=== PATIENT | female | born 1945 | race Caucasian/White ===

== ENCOUNTER 2016-10-10 08:45 | Emergency (ER) | payer MEDICARE, BC ==
--- NOTE | ~2016-10-10 | CR63 ---
[facility] A Service of [facility] & [facility] RADIOLOGY TEXT RESULTS PATIENT: JAMES BOYCE LOCATION: SED : 43 UNIT #: [id number] AGE: [address]: Hugo Campos MD SEX: F ORDER DR: [id number] [address] [address] [id number] E MR#: [id number] Acc #: [id number] NAME: JAMES BOYCE. : 1945 SEX: F STUDY DATE/TIME: 10/10/2016 8:57 UNIT: SED ROOM: STUDY DESCRIPTION: CR Chest 2 View Attending Physician: Hugo Campos M.D. Ordering Physician: Hugo Campos M.D. Primary Care Physician: Ezra Li D.O. MEDICAL IMAGING REPORT This report is preliminary unless electronic signature is present. EXAM PA and lateral chest radiograph. INDICATIONS Cough that started evening. FINDINGS Heart size is within normal limits. There is a suggestion of a nodular density within the left upper lobe which I am not completely convinced was on the prior study. Patient does have background changes of COPD. There is a lucency seen on the lateral view which could reflect a pneumatocele. There is also potentially some patchy consolidation within the infrahilar regions. IMPRESSION 1. Suggestion of a nodular density within the left upper lobe which was not clearly identified on prior studies. This may reflect a benign finding or could even be artifactual. This would be better assessed with dedicated CT of the chest, especially given background changes of COPD. 2. Lucency seen on the lateral view could reflect a pneumatocele. I also question if perhaps there is some patchy consolidation within the infrahilar regions bilaterally. Dictated by... Veronica Argueta M.D. THIS IS AN ELECTRONICALLY VERIFIED REPORT Veronica Argueta M.D. at 10/11/2016 4:35 PM AFF/psc [facility] A Service of [facility] RADIOLOGY TEXT RESULTS PATIENT: JAMES BOYCE [place] [facility] [place] UNIT #: [id number] AGE: [address]: Hugo Campos MD SEX: F ORDER DR: TD: 10/10/2016 17:43 JOB #: [id number] MEDICAL IMAGING REPORT Page 1 of 1
[~2016-10-10 08:45] MED LIST: ALBUTEROL17 GM; AMLODIPINE BESYL5 MG PO; AMOXICILLIN PO; BYSTOLIC5 MG PO; ECOTRIN81 M1 PO; FLEXERIL PO; KETOPROFEN PO; LOPRESSOR PO; MEDROL PO; NORVASC10 MG PO; OMEPRAZOLE40 MG PO; PRAVACHOL80 MG PO; PRILOSEC40 MG PO; QVAR7.3 G1 IH; QVAR7.3 G1 IN; RANITIDINE HCL300 M1 PO; SYMBICORT; SYNTHROID PO; TYLENOL325 M1 PO; VITAMIN B122500 MC1 SL; VOLTAREN75 MG PO; ZITHROMAX1 G/PKT PO
== END 2016-10-10 09:33 | disposition home or self-care (01) ==
LOC: SED 08:45
DX: J18.1 Lobar pneumonia, unspecified organism (principal); J45.909 Unspecified asthma, uncomplicated; I10 Essential (primary) hypertension; Z98.51 Tubal ligation status
CPT/HCPCS: 71020; 99283

== ENCOUNTER → 2016-10-21 | Outpatient (CLI) | payer MEDICARE, BC ==
[~2016-10-21] MED LIST changes: +ASPIRIN81 MG PO
--- NOTE | ~2016-10-21 | CT57 ---
[facility] A Service of [facility] & [facility] RADIOLOGY TEXT RESULTS PATIENT: JAMES BOYCE LOCATION: [facility] : 43 UNIT #: [id number] AGE: [address]: Samara Crawford APRN SEX: F ORDER DR: [id number] [address] [address] [id number] O MR#: [id number] Acc #: [id number] NAME: JAMES BOYCE : 1945 SEX: F STUDY DATE/TIME: 10/21/2016 13:36 UNIT: [facility] ROOM: STUDY DESCRIPTION: CT Chest Wo Cont Attending Physician: Samara Crawford A.P.R.N. Referring Physician: Samara Crawford A.P.R.N. Ordering Physician: Samara Crawford A.P.R.N. Primary Care Physician: Ezra Li D.O. MEDICAL IMAGING REPORT This report is preliminary unless electronic signature is present. EXAM Chest CT no contrast 10/21/2016 INDICATION 71-year-old female with pneumonia bilaterally 2 weeks ago. Cough. "Bubble on outside of lungs" according to the patient. Abnormal ER x-ray performed 2 weeks ago. TECHNIQUE Noncontrast chest CT was performed. This CT examination was performed with one or more of the following radiation dose reduction techniques: automatic exposure control, adjustment of mA and/or kV according to patient size, and iterative reconstruction. COMPARISON 10/07/2009. FINDINGS There is no consolidation or pleural effusion. There are noncalcified nodules that are unchanged. This includes a 7 mm nodule in the upper lobe on the left and a 5 mm nodule in the lower lobe on the left. There are scattered areas of atelectasis/scarring. Included thyroid unremarkable. There are reactive-appearing axillary nodes. No pericardial effusion or mediastinal adenopathy. Aorta demonstrates atherosclerotic change to a mild degree. No aneurysm. Large hiatal hernia and partial intrathoracic stomach. Included upper abdomen unremarkable. Incidental uncomplicated diverticulosis. Osseous structures demonstrate degenerative change. No suspicious bone lesion. IMPRESSION [facility] A Service of [facility] & [facility] RADIOLOGY TEXT RESULTS PATIENT: JAMES BOYCE LOCATION: [facility] : 43 UNIT #: [id number] AGE: [address]: Samara Crawford APRN SEX: F ORDER DR: 1. No evidence of pneumonia, pleural effusion or adenopathy. 2. Noncalcified nodules in the left lung are unchanged dating back to 2009 and therefore benign. 3. Large hiatal hernia and partial intrathoracic stomach. Dictated by... Marquis Dumont M.D. THIS IS AN ELECTRONICALLY VERIFIED REPORT Marquis Dumont M.D. at 10/22/2016 4:49 PM MOHIT/tracey TD: 10/22/2016 10:22 JOB #: [id number] MEDICAL IMAGING REPORT Page 1 of 1
== END | disposition home or self-care (01) ==
LOC: SCT 13:33
DX: J18.9 Pneumonia, unspecified organism (principal); R91.8 Other nonspecific abnormal finding of lung field; K44.9 Diaphragmatic hernia without obstruction or gangrene
CPT/HCPCS: 71250

== ENCOUNTER 2017-03-14 15:22 | Emergency (ER) | payer MEDICARE, BC ==
--- NOTE | ~2017-03-14 | CT4 ---
[facility] A Service of [facility] & [facility] RADIOLOGY TEXT RESULTS PATIENT: JAMES BOYCE LOCATION: SED : 41 UNIT #: [id number] AGE: [address]: Jennifer Ruiz MD SEX: F ORDER DR: [id number] [address] [address] [id number] E MR#: [id number] Acc #: [id number] NAME: JAMES BOYCE. : 1945 SEX: F STUDY DATE/TIME: 03/14/2017 16:52 UNIT: SED ROOM: STUDY DESCRIPTION: CT Abd and Pelv Wo Cont Attending Physician: Jennifer Ruiz M.D. Ordering Physician: Jennifer Ruiz M.D. Primary Care Physician: Ezra Li D.O. MEDICAL IMAGING REPORT This report is preliminary unless electronic signature is present. EXAM Abdomen and pelvis CT, no contrast, 03/14/2017. INDICATIONS Generalized abdominal pain and nausea and diarrhea since last night. TECHNIQUE Noncontrast abdomen and pelvis CT was performed and compared with 01/05/2008. This CT exam was performed with one or more of the following radiation dose reduction techniques: automatic exposure control, adjustment of mA and/or kV according to patient size, and iterative reconstruction. FINDINGS CT ABDOMEN: Exam markedly degraded by noncontrast technique. Included lung bases are clear. There is a large hiatal hernia and partial intrathoracic stomach. Aorta demonstrates no aneurysm. Spleen, adrenal glands, and pancreas and gallbladder unremarkable. Liver unremarkable. Kidneys demonstrate no hydronephrosis or radiopaque stone. The ureters demonstrate no secondary sign of obstruction. There are several vascular-type calcifications in close proximity to the ureters and it would be impossible to fully exclude a distal ureteral stone on either side. Correlate with urinalysis. CT PELVIS: Bladder unremarkable. No free fluid or drainable fluid collection in the pelvis. No adnexal mass. There is diverticulosis. There is fluid distension of the colon suggestive of diarrhea. Appendix best demonstrated on coronal reformatted images and appears normal. Inguinal canals are unremarkable. No free air. There is antegrade listhesis of L4 on L5 that appears to be STS. [facility] A Service of [facility] RADIOLOGY TEXT RESULTS PATIENT: JAMES BOYCE LOCATION: [place] : 41 UNIT #: [id number] AGE: [address]: Jennifer Ruiz MD SEX: F ORDER DR: degenerative in nature. No acute fracture. IMPRESSION 1. Mild fluid distension of the colon suggestive of diarrhea. There is diverticulosis but no convincing CT evidence of colitis or diverticulitis at this time. 2. Appendix normal. 3. The may be a mild small bowel ileus, but there is no distinct evidence of bowel obstruction. 4. There is no primary or secondary sign of obstructing stone in either kidney. 5. Large hiatal hernia and partial intrathoracic stomach. Dictated by... Marquis Dumont M.D. THIS IS AN ELECTRONICALLY VERIFIED REPORT Marquis Dumont M.D. at 03/14/2017 10:46 PM MOHIT/joe TD: 03/14/2017 21:12 JOB #: [id number] MEDICAL IMAGING REPORT Page 1 of 1
[~2017-03-14 15:22] MED LIST changes: -ASPIRIN81 MG PO
[2017-03-14] MEDS ORDERED: ASPIRIN81 MG PO (15:25)
[2017-03-14 15:58] LABS: BASOPHIL# 0.1 X10e3 (0-0.3); BASOPHIL% 0.7 % (0-2.5); EOSINOPHIL# 0.1 X10e3 (0-0.7); EOSINOPHIL% 0.8 % (0.0-7.0); HEMATOCRIT 37.8 % (35.0-45.0); HEMOGLOBIN 13.1 gm/dL (12.0-16.0); LYMPHOCYTE# 0.6 X10e3 (1.0-3.5); LYMPHOCYTE% 6.3 % (17.0-45.0); MEAN CORPUSCULAR HEMOGLOBIN 31.5 PG (28-34); MEAN CORPUSCULAR HGB CONC 34.6 g/dL (30-36); MONOCYTE# 0.6 X10e3 (0-1.0); NEUTROPHIL# 8.5 X10e3 (1.5-7.1); NEUTROPHIL% 86.2 % (40-75); PLATELET COUNT 239 X10e3 (140-420); RED BLOOD COUNT 4.15 X10e (3.90-5.30); RED CELL DISTRIBUTION WIDTH 13.5 % (11.0-15.5); WHITE BLOOD COUNT 9.9 X10e3 (4.0-10.5)
[2017-03-14 16:01] LABS: DIFF IND NO
[2017-03-14 16:16] LABS: ALBUMIN SERUM 4.6 g/dL (3.5-5.0); ALKALINE PHOSPHATASE 59 U/L (32-92); ALT (SGPT) 16 U/L (10-40); AMYLASE 29 U/L (0-46); AST (SGOT) 22 U/L (10-42); BILIRUBIN,TOTAL 0.6 mg/dL (0.2-2.0); BLOOD UREA NITROGEN 17 mg/dL (9-23); BUN/CREATININE RATIO 21.25; CALCIUM SERUM 8.7 mg/dL (8.4-10.2); CARBON DIOXIDE 23 mmol/L (22-31); CHLORIDE 104 mmol/L (100-111); CREATININE SERUM 0.8 mg/dL (0.6-1.4); GLOM FILT RATE Estimated 73.2 mL/min (>60); GLUCOSE FASTING 128 mg/dL (70-110); LIPASE 21 U/L (22-51); POTASSIUM 3.4 mmol/L (3.5-5.1); PROTEIN TOTAL SERUM 7.5 g/dL (6.0-8.3); SODIUM 132 mmol/L (135-145)
[2017-03-14 16:24] LABS: BILIRUBIN, DIRECT <0.1 mg/dL (0.0-0.2); BILIRUBIN,INDIRECT 0.5 mg/dL (0.0-0.9)
[2017-03-14 17:18] LABS: URINE SOURCE CLEAN CATCH
[2017-03-14 17:21] LABS: URINE APPEARANCE CLEAR; URINE BILIRUBIN NEG (NEG); URINE BLOOD 1+ (NEG); URINE COLOR YELLOW; URINE GLUCOSE NEG (NORM); URINE KETONE NEG (NEG); URINE LEUKOCYTE ESTERASE 2+ (NEG); URINE NITRATE POS (NEG); URINE PH 5.5 (5-8); URINE PROTEIN NEG (NEG); URINE UROBILINOGEN 0.2 MG/DL (NORM)
[2017-03-14 17:23] LABS: MICRO INDICATED? YES
[2017-03-14 17:41] LABS: CULTURE INDICATED? YES; URINE BACTERIA 2+ (NEG); URINE RBC 0-2 /[HPF] (0-2); URINE SQUAMOUS EPITHELIAL CELL OCCAS /[HPF]
== END 2017-03-14 18:00 | disposition home or self-care (01) ==
LOC: SED 15:22
PROVIDERS: Student in an Organized Health Care Education/Training Program
DX: R19.7 Diarrhea, unspecified (principal); I10 Essential (primary) hypertension; E03.9 Hypothyroidism, unspecified
CPT/HCPCS: 36415; 74176; 80048; 80076; 81003; 82150; 83690; 85025; 87086; 87088; 87186; 96361; 96374; 96375; 99284; C9113; J2270; J2405